=== PATIENT | male | born 1945 | race Caucasian/White ===

== ENCOUNTER → 2024-05-11 06:15 | Day surgery (SDC) | payer MEDICARE, OTHER, SELFPAY | LOC: GI 06:15 | PROVIDERS: ATTENDING PHYSICIAN Internal Medicine; FAMILY PHYSICIAN Internal Medicine | DX: Z12.11 Encounter for screening for malignant neoplasm of colon (principal); K57.30 Diverticulosis of large intestine without perforation or abscess without bleeding; K64.8 Other hemorrhoids; Z86.010 Personal history of colon polyps | CPT/HCPCS: G0105 ==

== ENCOUNTER → 2024-11-22 06:48 | Outpatient (REF) | payer MEDICARE, OTHER, SELFPAY ==
[2024-11-22 08:00] LABS: Urine Albumin Negative (Neg - Trace); Urine Bilirubin Negative (Negative); Urine Character Clear (Clear); Urine Color Yellow; Urine Glucose Negative (Negative); Urine Ketone Negative (Negative); Urine Leukocyte Negative (Negative); Urine Nitrite Negative (Negative); Urine Occult Blood 1+ (Negative); Urine Specific Gravity 1.025 (<1.030); Urine Urobilinogen Negative (Neg - 1+)
[2024-11-22 08:04] LABS: % Basophils 0.8 % (0-2); % Immature Granulocytes 0.2 % (0-0.5); % Lymphocytes 37.9 % (20.5-51.1); % Monocytes 9.5 % (1.7-9.3); % Neutrophils 47.6 % (42.2-75.2); Absolute Eosinophils 0.2 10^3/uL (0-0.7); Absolute Lymphocytes 1.8 10^3/uL (1.2-3.4); Absolute Monocytes 0.5 10^3/uL (0.1-0.6); Absolute Neutrophils 2.2 10^3/uL (1.4-6.5); Hematocrit 44.2 % (39.0-52.0); Hemoglobin 14.8 g/dL (13.0-18.0); Mean Corp Hgb Conc. 33.5 g/dL (33.0-37.0); Mean Corpuscular Hgb 30.7 pg (27.0-31.0); Mean Corpuscular Volume 91.7 fL (80.0-94.0); Mean Platelet Volume 10.6 fL (7.4-10.4); Nucleated Red Blood Cells % 0 % (-); Platelet Count 186 10^3/uL (130-400); Red Blood Cell Count 4.82 10^6/uL (4.70-6.10); Red Cell Dist. Width 11.7 % (11.5-14.5); White Blood Cell Count 4.7 10^3/uL (4.8-10.8)
[2024-11-22 08:35] LABS: Urine White Cell 0-2 /HPF (0-5)
[2024-11-22 08:35] LABS: ALT (SGPT) 28 U/L (0-50); AST (SGOT) 27 U/L (17-59); Albumin 4.4 g/dl (3.5-5.0); Alkaline Phosphatase 68 U/L (38-126); Blood Urea Nitrogen 18 mg/dl (9-20); Calcium 9.1 mg/dl (8.4-10.2); Carbon Dioxide 21 mmol/L (22-30); Chloride 106 mmol/L (98-107); Glucose 99 mg/dl (70-99); HDL Cholesterol 51 mg/dl; LDL Cholesterol, Calculated 69 mg/dl; Potassium 4.1 mmol/L (3.5-5.1); Sodium 139 mmol/L (135-145); Total Bilirubin 0.8 mg/dl (0.2-1.3); Total Cholesterol 135 mg/dl (50-199); Total Protein 7.1 g/dl (6.3-8.2); Triglyceride 76 mg/dl (10-149); Very Low Density Lipoprotein 15 mg/dl (0-30); eGFR > 60.00
== END ==
LOC: REG 06:48
PROVIDERS: ATTENDING PHYSICIAN Internal Medicine
DX: I10 Essential (primary) hypertension (principal); E78.00 Pure hypercholesterolemia, unspecified; Z12.5 Encounter for screening for malignant neoplasm of prostate
CPT/HCPCS: 36415; 80053; 80061; 81003; 81015; 85025; G0103

== ENCOUNTER 2025-05-30 12:27 | Emergency (ER) | payer MEDICARE, OTHER, SELFPAY ==
[2025-05-30 12:32] VITALS: BP 159/89
[2025-05-30 12:51] LABS: Hematocrit 44.1 % (39.0-52.0); Hemoglobin 14.6 g/dL (13.0-18.0); Mean Corp Hgb Conc. 33.1 g/dL (33.0-37.0); Mean Corpuscular Volume 95.2 fL (80.0-94.0); Nucleated Red Blood Cells % 0 % (-); Platelet Count 176 10^3/uL (130-400); Red Cell Dist. Width 12.1 % (11.5-14.5)
[2025-05-30 13:11] LABS: ALT (SGPT) 30 U/L (0-50); AST (SGOT) 28 U/L (17-59); Albumin 4.5 g/dl (3.5-5.0); Alkaline Phosphatase 60 U/L (38-126); Blood Urea Nitrogen 27 mg/dl (9-20); Calcium 9.0 mg/dl (8.4-10.2); Carbon Dioxide 27 mmol/L (22-30); Chloride 108 mmol/L (98-107); Glucose 102 mg/dl (70-99); Potassium 4.8 mmol/L (3.5-5.1); Sodium 141 mmol/L (135-145); Total Protein 7.4 g/dl (6.3-8.2); eGFR 55.88
--- NOTE | 2025-05-30 13:45 | ED.GENMED ---
History of Present Illness
General
Chief Complaint: Insect Sting
Source: patient
Exam Limitations: none
Time Seen by Provider: 05/30/25 13:34
Nursing documentation reviewed up to this point in time: agreed with
History of Present Illness
History of Present Illness:
80-year-old male bit by an insect and developed a red rash behind his left knee, his had a similar more severe reaction a few weeks ago had a negative Lyme test he is unsure if he was bitten by a tick or by another insect, no fever no headache
no nausea or vomiting rash is not pruritic
Past History
Past History
ED Past Medical History: HTN, Hypercholesterolemia and Other (kidney stones)
Social History
Tobacco: Non-smoker
Alcohol: Daily (Wine one glass)
Personal:
Living: with family
Employment: Employed ([employer])
Phy Exam
Physical Exam
Physical Exam:
Physical Exam
General: no apparent distress, not acutely ill
Neck: No jaundice
Heart: s1/s2 regular rate and rhythm, no murmur. equal radial pulses.
Lungs: no acute respiratory distress. clear bilaterally
Neuro: alert and oriented. no focal neurological deficits
Skin: Red circular rash left posterior knee fossa
Psychiatric: well kept. interactive and cooperative
Extremities: no edema.
Course
Orders/Labs/Results
Orders:
Orders
05/30/25 12:38
CMP [Comprehensive Metabolic Panel] Urgent
Complete Blood Count/With Diff Urgent
Lyme Progressive Urgent
05/30/25 13:43
Doxycycline [Vibramycin] 100 mg PO NOW STA
Abnormal Lab Results
05/30/25
12:38
RBC 4.63 L 10^6/uL
(4.70-6.10)
MCV 95.2 H fL
(80.0-94.0)
MCH 31.5 H pg
(27.0-31.0)
MPV 10.7 H fL
(7.4-10.4)
Absolute Monos (auto) 0.7 H 10^3/uL
(0.1-0.6)
Monocytes % 11.4 H %
(1.7-9.3)
Chloride 108 H mmol/L
(98-107)
BUN 27 H mg/dl
(9-20)
Glucose 102 H mg/dl
(70-99)
05/30/25 12:38
05/30/25 12:38
Vital Signs
Initial and Last Documented VS:
Initial Vital Signs
Temp Pulse Resp BP Pulse Ox
97.6 F 60 16 159/89 98
05/30/25 12:32 05/30/25 12:32 05/30/25 12:32 05/30/25 12:32 05/30/25 12:32
Last Documented Vital Signs
Temp Pulse Resp BP Pulse Ox
97.6 F 60 16 159/89 98
05/30/25 12:32 05/30/25 12:32 05/30/25 12:32 05/30/25 12:32 05/30/25 13:45
MDM/Problems Addressed
Differential Diagnosis Includes:
Insect bite contact dermatitis ECM rash
MDM/Problems Addressed:
Rash after insect bite
Chronic conditions affecting care: HTN
Acute Exacerbation and/or Progression of Chronic Illness: HTN
*Pulse Oximetry
SaO2: 98
Oxygen Mode of Delivery: Room air
Patient hypoxic: no
*Critical Care Note
Total Time (30-74mins, 75-104mins- exclusive of procedures): Not Applicable
Update Note
Update Note:
Not classic but could be Lyme, in the middle of the bit of a Lyme epidemic here in [place], early testing can be negative will treat empirically reviewed pros and cons with patient
ED Attending Note
-
Portions of this chart may have been created with voice recognition software.� Occasional wrong word or��sound alike� substitutions may have occurred due to the inherent limitations of voice recognition software.
Discharge Plan
Departure
Patient Disposition: Home (Routine Discharge)
Date of Disposition: 05/30/25
Time of Disposition: 13:44
Patient with high blood pressure during this ER visit?: No
Condition: Good
Discharge Problem:
Insect bite
Instructions: Insect Bites and Stings (DC)
Prescriptions:
New
doxycycline monohydrate 100 mg capsule
100 mg PO BID Qty: 30 0RF
hydrocortisone [Anti-Itch (HC)] 1 % ointment
1 applic topical DAILY PRN (Reason: rash) Qty: 28.35 0RF
No Action
rosuvastatin 5 MG tablet
5 mg PO Q48H
Patient Comments:
takes at HS
metoprolol tartrate 25 MG tablet
25 mg PO DAILY
tamsulosin 0.4 MG capsule
0.4 mg PO PRN PRN (Reason: prostate)
polyethylene glycol 3350 17 GRAMS powder in packet
17 grams PO DAILY Qty: 5 0RF
cephalexin 500 mg capsule
500 mg PO QID 7 Days Qty: 28 0RF
mupirocin 2 % ointment
1 applic topical BID Qty: 22 0RF
Interventions
Interventions:
*Risk Screen - Suicide Last Done: 05/30/25 12:32
*Neglect/Abuse Screening Last Done: 05/30/25 12:32
ED-Skin Assessment Last Done: 05/30/25 13:29
ED- Pulmonary Assessment Last Done: 05/30/25 13:29
Discharge Date and Time
Print Language: [id number]
[2025-05-30] MEDS: VIBRAMYCIN 100 MG PO (14:03)
[2025-05-31 14:16] LABS: Lyme Antibody Screen, EIA Negative (Negative)
== END 2025-05-30 14:13 | disposition home or self-care (01) ==
LOC: EMR 12:27
PROVIDERS: Student in an Organized Health Care Education/Training Program; EMERGENCY PHYSICIAN Emergency Medicine; FAMILY PHYSICIAN Internal Medicine
DX: R21 Rash and other nonspecific skin eruption (principal); W57.XXXA Bitten or stung by nonvenomous insect and other nonvenomous arthropods, initial encounter; I10 Essential (primary) hypertension; E78.00 Pure hypercholesterolemia, unspecified; Z87.442 Personal history of urinary calculi
CPT/HCPCS: 99283; 80053; 85025; 86618

== ENCOUNTER → 2025-08-08 11:14 | Outpatient (REF) | payer MEDICARE, OTHER, SELFPAY ==
[2025-08-08 11:57] LABS: Hematocrit 45.7 % (39.0-52.0); Hemoglobin 15.2 g/dL (13.0-18.0); Mean Corp Hgb Conc. 33.3 g/dL (33.0-37.0); Mean Corpuscular Volume 95.6 fL (80.0-94.0); Nucleated Red Blood Cells % 0 % (-); Platelet Count 173 10^3/uL (130-400); Red Cell Dist. Width 11.8 % (11.5-14.5)
[2025-08-08 12:48] LABS: Albumin 4.2 g/dl (3.5-5.0); Blood Urea Nitrogen 25 mg/dl (9-20); Calcium 9.1 mg/dl (8.4-10.2); Carbon Dioxide 26 mmol/L (22-30); Chloride 107 mmol/L (98-107); Glucose 95 mg/dl (70-99); Potassium 4.6 mmol/L (3.5-5.1); Sodium 142 mmol/L (135-145); eGFR 55.88
[2025-08-08 12:53] LABS: C-Reactive Protein 16.70 mg/L (0.0-10.00)
[2025-08-09 15:06] LABS: Lyme Antibody Screen, EIA Equivocal (Negative)
== END ==
LOC: REG 11:14
PROVIDERS: ATTENDING PHYSICIAN Internal Medicine
DX: A69.20 Lyme disease, unspecified (principal); M19.90 Unspecified osteoarthritis, unspecified site
CPT/HCPCS: 36415; 80069; 85025; 85652; 86140; 86617; 86618